=== PATIENT | female | born 1995 | race Caucasian/White ===

== ENCOUNTER 2018-07-07 01:49 | Emergency (ER) | payer BC ==
[~2018-07-07] VITALS: Ht 170.2 cm; Wt 63.5 kg
[2018-07-07 02:04] VITALS: BP 120/74
[2018-07-07 02:40] VITALS: BP 118/72
== END 2018-07-07 02:40 | disposition home or self-care (01) ==
LOC: MED 01:49
DX: M62.830 Muscle spasm of back (principal)
CPT/HCPCS: 99281